=== PATIENT | female | born 1980 | race Caucasian/White ===

== ENCOUNTER 2022-02-21 10:27 | Emergency (ER) | payer OTHER ==
[~2022-02-21] VITALS: Ht 165.1 cm; Wt 65.8 kg
== END 2022-02-21 21:16 | disposition home or self-care (01) ==
LOC: ER 10:27
DX: O02.1 Missed abortion (principal)

== ENCOUNTER 2022-02-23 05:30 | Emergency (ER) | payer OTHER ==
[~2022-02-23] VITALS: Ht 165.1 cm; Wt 65.8 kg
== END 2022-02-23 19:42 | disposition left against medical advice (07) ==
LOC: ER 05:30
DX: O02.1 Missed abortion (principal)

== ENCOUNTER 2022-09-06 09:11 | Outpatient (CLI) | payer OTHER | END 2022-09-06 17:42 | disposition home or self-care (01) | LOC: PRENATAL 09:11 | PROVIDERS: ATTEND Obstetrics & Gynecology Maternal & Fetal Medicine | DX: O35.9XX0 Maternal care for (suspected) fetal abnormality and damage, unspecified, not applicable or unspecified (principal); O35.3XX0 Maternal care for (suspected) damage to fetus from viral disease in mother, not applicable or unspecified; O09.529 Supervision of elderly multigravida, unspecified trimester; Z3A.20 20 weeks gestation of pregnancy ==

== ENCOUNTER 2022-11-29 08:25 | Outpatient (CLI) | payer OTHER | END 2022-11-29 10:20 | disposition home or self-care (01) | LOC: PRENATAL 08:25 | PROVIDERS: ATTEND Obstetrics & Gynecology Maternal & Fetal Medicine | DX: O26.849 Uterine size-date discrepancy, unspecified trimester (principal); O36.8199 Decreased fetal movements, unspecified trimester, other fetus; O09.529 Supervision of elderly multigravida, unspecified trimester; Z3A.32 32 weeks gestation of pregnancy ==

== ENCOUNTER 2022-12-29 13:07 | Outpatient (CLI) | payer OTHER | END 2022-12-29 23:23 | disposition home or self-care (01) | LOC: OBS/DEL 13:07 | PROVIDERS: ATTEND Obstetrics & Gynecology | DX: O16.3 Unspecified maternal hypertension, third trimester (principal); Z3A.36 36 weeks gestation of pregnancy ==

== ENCOUNTER 2023-01-11 08:58 | Inpatient (IN) | payer OTHER ==
[~2023-01-11] VITALS: Ht 167.6 cm; Wt 3.2 kg
[2023-01-19] MEDS ORDERED: VITATRUE COMBO1 EACH PO (06:33)
== END 2023-01-22 10:55 | disposition home or self-care (01) | DRG 785 ==
LOC: OB/GYN 01-19 07:22 → O/R 01-19 07:22 → LDR 01-19 08:30 → OB/GYN 01-19 14:18
PROVIDERS: ADMIT Obstetrics & Gynecology; ATTEND Obstetrics & Gynecology
PROC: 0UB70ZZ Excision of Bilateral Fallopian Tubes, Open Approach (ICD-10-PCS; 2023-01-19)
PROC: 4A1HXCZ Monitoring of Products of Conception, Cardiac Rate, External Approach (ICD-10-PCS; 2023-01-19)
PROC: 10D00Z1 Extraction of Products of Conception, Low, Open Approach (ICD-10-PCS; principal; 2023-01-19 08:30)
DX: O34.211 Maternal care for low transverse scar from previous cesarean delivery (principal); Z3A.39 39 weeks gestation of pregnancy; Z37.0 Single live birth; Z30.2 Encounter for sterilization; Z20.822 Contact with and (suspected) exposure to COVID-19

== ENCOUNTER 2023-01-26 12:53 | Emergency (ER) | payer OTHER ==
[~2023-01-26] VITALS: Ht 167.6 cm; Wt 68.0 kg
[~2023-01-26 12:53] MED LIST: VITATRUE COMBO1 EACH PO
[2023-01-26] MEDS ORDERED: PRENATAL + DHA1 EAC1 (13:33)
== END 2023-01-26 16:04 | disposition home or self-care (01) ==
LOC: ER 12:53
PROVIDERS: General Practice
DX: D64.9 Anemia, unspecified (principal); I10 Essential (primary) hypertension